=== PATIENT | female | born 1980 | race Caucasian/White ===

== ENCOUNTER 2021-04-22 14:59 | Emergency (ER) | payer SELFPAY ==
[2021-04-22 15:12] VITALS: BP 113/71; PULSE 85; TEMP 36.3; O2SAT 98
--- NOTE | 2021-04-22 15:57 | W.ED.GENAD ---
Discharge Plan Discharge Details Chief Complaint: Vascular Primary Care Provider: None,None ED Provider: Edna Antunez Home Meds and New Rx's Prescriptions: No Action sertraline [Zoloft] 50 mg Tablet 50 mg PO DAILY RF: 0 Discharge Data Discharge Date/Time-TO BE ENTERED AT DEPARTURE: 04/22/21 22:35 Medical Decision Making 41-year-old female presents with chief complaint of left knee tenderness and left lower extremity swelling which began approximately 1 week ago. Began with some tenderness and progress to swelling which extended into her left thigh. She reports increased activity approximately 1 week ago which may have contributed to the tenderness. However, she has about 13 hours of flight time from out of [place], flew in on Friday. Denies any chest pain no shortness of breath no fever chills. Does report a headache which she took sumatriptan for earlier today. Non-smoker, not on any control, no direct history of clotting disorders. She does report distant history on her mother side of DVTs with . At this time labs ordered including D-dimer CBC, CMP PT. Story is concerning for DVT however, patient is at low risk not on control no history of clotting disorders, non-smoker, nontachycardic upon arrival. She does state however that there is some distant history of blood clots on her mother side but none directly, also do not have access to ultrasound at this time. Will consider ordering on for tomorrow AM. X-ray left knee ordered. Offered Tylenol ibuprofen patient declined at this time. CBC is largely within normal limits no leukocytosis D-dimer is 204 which is also within normal limits less than 500, hemoglobin 13.1 hematocrit 39.7, PT 10.7 seconds INR 1.1 CMP also largely within normal limits glucose 111 Imaging protocol: XR Left knee. Views: 3 views. Total images: 4 COMPARISON: No relevant prior studies available. FINDINGS: Bones/joints: Normal. Soft tissues: Normal. IMPRESSION: No acute findings. Thank you for allowing us to participate in the care of your patient. Dictated and Authenticated by: Dillon Rocha MD 04/22/2021 5:38 PM Eastern Time ([place]) 1837: Informed by staff design engineer that patient is reporting not feeling well is complaining of right-sided headache and some squeezing in her right side of her neck which just began suddenly. On further examination patient has some left lower extremity weakness, decreased sensation to her left lower leg, no pronator drift, no foot drop or leg drop, no facial droop. Of note patient did take a sumatriptan prior to arrival for headache which she reported earlier. She does have a history of migraines. At this time I did order a CT brain and neck CTA. 2021: Call received from [facility] Dr. Robles radiologist he reports a filling defect in the right vertebral artery questionable dissection recommend catheter evaluation. Will discuss findings with patient and family and call [facility] transfer center for neurology consult and transfer request. FINDINGS: ANTERIOR CIRCULATION: Right internal carotid artery: Intracranial segment is patent with no significant stenosis or occlusion. No aneurysm. Right middle cerebral artery: No occlusion or significant stenosis. No aneurysm. Right anterior cerebral artery: No occlusion or significant stenosis. No aneurysm. MARIALUISA ARANGO Preliminary Radiology Report Page 2 of 3 Left internal carotid artery: Intracranial segment is patent with no significant stenosis. No aneurysm. Left middle cerebral artery: No occlusion or significant stenosis. No aneurysm. Left anterior cerebral artery: No occlusion or significant stenosis. No aneurysm. POSTERIOR CIRCULATION: Right vertebral artery: There is a thin linear filling defect in the intracranial portion of the right vertebral artery (series 11, image 69). Left vertebral artery: No occlusion or significant stenosis. No aneurysm. Basilar artery: No occlusion or significant stenosis. No aneurysm. Right posterior cerebral artery: No occlusion or significant stenosis. No aneurysm. Left posterior cerebral artery: No occlusion or significant stenosis. No aneurysm. HEAD: Brain: Unremarkable. No acute intracranial hemorrhage. No significant white matter disease. No edema. Cerebral ventricles: Normal. No ventriculomegaly. Bones/joints: Unremarkable. No acute fracture. Paranasal sinuses: Visualized sinuses are normal. No fluid levels. Mastoid air cells: Visualized mastoids are normal. No mastoid effusion. Soft tissues: Unremarkable. IMPRESSION: Linear filling defect in the intracranial right vertebral artery. Differential considerations include dissection, thrombus/embolus and artifact. Correlation with catheter angiography may be of value. ASSESSMENT: ASPECTS ([place] Stroke Program Early CT Score) is 10. Exam: CT Angiography Neck Without And With Contrast Exam date and time: 04/22/2021 6:38 PM Age: 41 years old Clinical indication: Headache and numbness and other: Left leg tingling; Patient HX: Headache in right side right christian into neck, numbness, L leg tingling TECHNIQUE: Imaging protocol: Computed tomographic angiography of the neck without and with contrast. 3D rendering (Not supervised by radiologist): MIP and/or 3D reconstructed images were created by the technologist. Radiation optimization: All CT scans at this facility use at least one of these dose optimization techniques: automated exposure control; mA and/or kV adjustment per patient size (includes targeted exams where dose is matched to clinical indication); or iterative reconstruction. COMPARISON: No relevant prior studies available. FINDINGS: Right common carotid artery: No stenosis. No dissection or occlusion. Right internal carotid artery: No stenosis of the extracranial segment. No dissection or occlusion. Right external carotid artery: No occlusion or stenosis of the origin. Left common carotid artery: No stenosis. No dissection or occlusion. Left internal carotid artery: No stenosis of the extracranial segment. No dissection or occlusion. Left external carotid artery: No occlusion or stenosis of the origin. Right vertebral artery: There is a thin linear filling defect in the intracranial portion of the right vertebral artery (series 11, image 69). Left vertebral artery: No stenosis. No dissection or occlusion. Soft tissues: Normal. No significant soft tissue swelling. Bones/joints: No acute fracture. IMPRESSION: Linear filling defect in the intracranial right vertebral artery. Differential considerations include dissection, thrombus/embolus and artifact. Correlation with catheter angiography may be of value. Thank you for allowing us to participate in the care of your patient. Dictated and Authenticated by: Dillon Rocha MD 2027: [facility] [place] transfer center called, Discussed CT results with patient and family who verbalized understanding of plan of care and are in agreement. Patient remains alert oriented. She does still complain of small right-sided headache with a little bit of right neck pain. No significant focal neuro deficits noted at this time. 2102: Spoke with neurologist Dr. Johnson regarding patient case and details, she recommends loading patient up with aspirin we will give 324 mg of chewable aspirin at this time. She does recommend transfer for further evaluation and imaging. Will discuss plan of care with patient and family. Will prepare to transfer to [facility] after bed confirmation. Patient remained hemodynamically stable throughout the rest of her stay no acute changes. Patient transferred to [facility]. HPI General Mode of arrival: ambulatory. Date/Time Provider Initiated Documentation: 04/22/21 15:41. Information obtained by: patient, family and RN notes reviewed. HPI Narrative: 41-year-old female presents with chief complaint of left knee tenderness and left lower extremity swelling which began approximately 1 week ago. Began with some tenderness and progress to swelling which extended into her left thigh. She reports increased activity approximately 1 week ago which may have contributed to the tenderness. However, she has about 13 hours of flight time from out of country, flew in on Friday. Denies any chest pain no shortness of breath no fever chills. Does report a headache which she took sumatriptan for earlier today. Non-smoker, not on any control, no direct history of clotting disorders. She does report distant history on her mother side of DVTs with . Related Data Home Medications Medication Instructions Recorded Confirmed sertraline [Zoloft] 50 mg PO DAILY 04/22/21 04/22/21 Allergies Allergy/AdvReac Type Severity Reaction Status Date / Time No Known Allergies Allergy Unverified 04/22/21 21:28 General Stated Complaint: Vascular ROBERT: 3 Review of Systems Narrative: Constitutional: Negative for weight loss, alert and oriented, well groomed, normal body habitus, appears comfortable. HEENT: Denies trauma, blurry vision, nasal discharge, sore throat, trouble swallowing. Chest: Denies chest pain, palpitations, irregular rhythm, hypertension. Respiratory: Denies Shortness of breath, cough, hemoptysis. GI: Denies abdominal pain, nausea, vomiting, diarrhea, constipation. Extremity: Complaining of left lower extremity swelling, tenderness, warmth and knee pain. : Denies dysuria, hematuria, flank pain, rectal bleeding. Neuro: Denies blurry vision, syncope, or facial numbness. Reports headache previously took sumatriptan for. Hematologic: Denies easy bruising, intolerance to heat or cold, hair loss. [facility] Social History Smoking/Tobacco Use Status: Never Smoking risk assessment performed?: Yes Exam Narrative Exam Narrative: Constitutional: Alert and oriented x3. Appears stated age. Normal body habitus. Head: Normocephalic, no trauma. Eyes: Pupils PERRLA, EOM's intact. Eyelids symmetrical without lesions, discharge, or swelling. Chest: RRR, Normal S1, S2, distal pulses intact. Resp: Lungs clear to auscultation bilaterally, no wheezes, rales, or rhonchi. Musculoskeletal: 5/5 strength to all four extremities. Left suprapatellar tenderness and pressure with passive range of motion. No significant deformity, erythema or swelling noted. No calf tenderness, negative Homans' sign, distal dorsal pedal pulses intact. Skin: No suspicious rashes or lesions. Capillary refill less than 2 sec. Neurologic: Cranial nerves II-XII intact. Alert and oriented x 3. DTR's intact. Hematologic/Lymphatic: No ecchymosis, no lymphadenopathy. Course Vital Signs Vital signs: Vital Signs Temperature 36.3 C L 04/22/21 15:12 Pulse 85 04/22/21 15:12 Blood Pressure 113/71 04/22/21 15:12 Pulse Oximetry 98 04/22/21 15:12 Temperature 36.3 C L 04/22/21 15:12 Temperature Source Temporal Artery Scan 04/22/21 15:12 Pulse 85 04/22/21 15:12 Blood Pressure 113/71 04/22/21 15:12 Blood Pressure Position Sitting 04/22/21 15:12 Pulse Oximetry 98 04/22/21 15:12 Oxygen Delivery Method Room Air 04/22/21 15:12 Oxygen Flow Rate 0 04/22/21 15:12 Pain Level 8 04/22/21 15:12
--- NOTE | 2021-04-22 16:00 | DI.RAD_ITS ---
Exam(s) XR KNEE LT 3V AP,LAT,TOMMY EXAM: XR KNEE LT 3V AP,LAT,TOMMY CLINICAL HISTORY: Left knee pain, swelling. TECHNIQUE: 2D digital imaging was performed. COMPARISON: No exams were available for comparison FINDINGS: BONES: No acute fracture is present. No bony destructive lesion is seen. JOINTS: The knee is normally aligned. No joint effusion is seen. SOFT TISSUE: Normal. IMPRESSION: Normal radiographs of the left knee. DATA REPOSITORY: RADIATION DOSE DELIVERED:
[2021-04-22 16:25] LABS: Abs Immature Grans 0.03 10^3/uL (0.0-0.06); Absolute Basophil Count 0.02 10^3/uL (0.0-0.2); Absolute Eosinophil Count 0.25 10^3/uL (0.0-0.7); Absolute Lymphocyte Count 2.31 10^3/uL (1.2-3.4); Absolute Monocyte Count 0.63 10^3/uL (0.1-0.8); Absolute Neutrophil Count 4.69 10^3/uL (1.2-6.7); Basophils % 0.3; Eosinophils % 3.2; HCT 39.7 % (36.0-46.0); HGB 13.1 g/dL (11.2-15.7); Immature Grans % 0.4; Lymphocytes % 29.1; MCH 30.1 pg (27.0-33.0); MCV 91.3 fL (80-95); MPV 9.5 fL (8.0-11.0); Monocytes % 7.9; Neutrophils % 59.1; Nucleated RBC 0 %; Platelet Count 299 10^3/uL (130-400); RBC 4.35 10^6/uL (3.93-5.22); RDW 12.6 % (11.7-14.6); RDW-SD 42.5 fL; WBC 7.93 10^3/uL (4.4-10.8)
[2021-04-22 16:37] LABS: INR 1.1 (0.9-1.1); Prothrombin Time 10.7 sec (9.3-11.0)
[2021-04-22 16:42] LABS: ALT 25 U/L (14-59); AST 12 U/L (15-37); Alkaline Phosphatase 35 U/L (46-116); Anion Gap 6.4 mmol/L (3-11); BUN 16 mg/dL (7-18); Bilirubin, Total 0.2 mg/dL (0.2-1.0); CO2 29.6 mmol/L (21.0-32.0); CREATININE 0.7 mg/dL (0.55-1.02); Calcium 8.9 mg/dL (8.5-10.1); Chloride 105 mmol/L (98-107); Glucose 111 mg/dL (74-106); Potassium 3.7 mmol/L (3.5-5.1); Sodium 141 mmol/L (136-145); Total Protein 7.3 g/dL (6.4-8.2)
[2021-04-22 17:06] LABS: D-Dimer 204 ng/mlFEU (<500)
--- NOTE | 2021-04-22 17:38 | DI.VRAD_ITS ---
PROCEDURE INFORMATION: Exam: XR Left Knee Exam date and time: 04/22/2021 4:15 PM Age: 41 years old Clinical indication: Patient HX: Left knee painx3 days, unknown injury TECHNIQUE: Imaging protocol: XR Left knee. Views: 3 views. Total images: 4 COMPARISON: No relevant prior studies available. FINDINGS: Bones/joints: Normal. Soft tissues: Normal. IMPRESSION: No acute findings. Dictated and Authenticated by: Dillon Rocha MD. Ordering:DANIEL Bishop MD
--- NOTE | 2021-04-22 18:30 | DI.CT_ITS ---
Exam(s) CT BRAIN NECK CTA EXAM: CT BRAIN NECK CTA CT BRAIN NECK CTA CLINICAL HISTORY: Right sided headache, Numbness, left leg, Tingling. TECHNIQUE: Imaging Protocol: Axial CT angiography was performed with multi-slice acquisition and mu lti-planar and/or 3D reconstructions. CONTRAST MATERIAL: Intravenous: Omnipaque 350 Contrast volume:100 ml COMPARISON: No exams were available for comparison FINDINGS: CT Head W/O and W contrast: Ventricles and Extra axial spaces: Normal in size and morphology for the patient's age. Hemorrhage: None. Cerebral parenchyma: Normal. Midline shift: None. Brainstem/Cerebellum: Normal. Calvarium: Normal. Visualized Paranasal sinuses/Mastoids: Clear. Soft Tissues: Unremarkable. Enhancement: Normal. CTA Brain W: Internal Carotid Arteries: Petrous: Normal. Cavernous: Normal. Cerebral: Normal. Middle Cerebral Arteries: Right: No aneurysm, occlusion or significant stenosis. Left: No aneurysm, occlusion or significant stenosis. Anterior Cerebral Arteries: Right: No aneurysm, occlusion or significant stenosis. Left: No aneurysm, occlusion or significant stenosis. Posterior cerebral Arteries: Right: No aneurysm, occlusion or significant stenosis. Left: No aneurysm, occlusion or significant stenosis. Vertebral Arteries: Right: No aneurysm, no occlusion. Small filling defect intracranial portion could represent a sma ll thrombus or small area of dissection versus developmental abnormality. Left: No aneurysm, occlusion or significant stenosis. Basilar Artery: No aneurysm, occlusion or significant stenosis. CTA Neck W: Common Carotid: Right: No aneurysm, occlusion or significant stenosis. Left: No aneurysm, occlusion or significant stenosis. External Carotid: Right: No aneurysm, occlusion or significant stenosis. Left: No aneurysm, occlusion or significant stenosis. Internal Carotid: Right: No aneurysm, occlusion or significant stenosis. Left: No aneurysm, occlusion or significant stenosis. Vertebral Artery: Right: No aneurysm, occlusion or significant stenosis. Left: No aneurysm, occlusion or significant stenosis. Lung Apices: Normal. Bones: Normal. Soft Tissues: Normal. IMPRESSION: 1. Small filling defect intracranial portion could represent a small thrombus or small area of diss ection versus developmental abnormality. Otherwise normal CTA examination of the [place]. 2. Unremarkable CT Head. 3. Normal CTA examination of the neck. INDICATION: Right sided headache, Numbness, left leg, Tingling RADIATION DOSE DELIVERED: 1,921.5mGy.cm Total DLP 1,921.5mGy.cm Total DLP DATA REPOSITORY: All CT scans at this facility are submitted to the National Radiology Data Registry (NRDR) Dose Index Registry (DIR) with the [employer] (ACR). RADIATION OPTIMIZATION: All CT scans at this facility use at least one of these dose optimization te chniques: automated exposure control; mA and/or kV adjustment per patient size (includes targeted exa ms where dose is matched to clinical indication); or iterative reconstruction.
[2021-04-22] MEDS: Acetaminophen 500 MG TAB PO (19:09)
[2021-04-22] MEDS: Omnipaque 350 MG/ML 100 ML BTL IJ (19:50)
[2021-04-22] MEDS: Normal Saline Flush 10 ML SYR IVP (19:51)
[2021-04-22] MEDS: Normal Saline - Diluent 50 ML VIAL IV (19:51)
--- NOTE | 2021-04-22 20:20 | DI.VRAD_ITS ---
Addendum created by Dillon Rocha MD on 04/22/2021 8:25:11 PM EDT: THIS REPORT CONTAINS FINDINGS THAT MAY BE CRITICAL TO PATIENT CARE. The findings were verbally communicated by me to MATILDA CHAUDHARI via telephone conference at 8:25 PM EDT on 04/22/2021. The findings were acknowledged and understood. Initial report created on 04/22/2021 8:19:45 PM EDT: PROCEDURE INFORMATION: Exam: CT Angiography Head Without And With Contrast, Arteriography Exam date and time: 04/22/2021 6:38 PM Age: 41 years old Clinical indication: Headache and numbness and other: Left leg tingling; Patient HX: Headache in right side right episcopalian into neck, numbness, L leg tingling TECHNIQUE: Imaging protocol: Computed tomographic angiography of the head without and with contrast. Exam focused on the arteries. 3D rendering (Not supervised by radiologist): MIP and/or 3D reconstructed images were created by the technologist. Total images: 2848 Radiation optimization: All CT scans at this facility use at least one of these dose optimization techniques: automated exposure control; mA and/or kV adjustment per patient size (includes targeted exams where dose is matched to clinical indication); or iterative reconstruction. Contrast material: OMNIPAQUE 350; Contrast volume: 100 ml; Contrast route: INTRAVENOUS (IV); Other technique: STROKE PROTOCOL was implemented. COMPARISON: No relevant prior studies available. FINDINGS: ANTERIOR CIRCULATION: Right internal carotid artery: Intracranial segment is patent with no significant stenosis or occlusion. No aneurysm. Right middle cerebral artery: No occlusion or significant stenosis. No aneurysm. Right anterior cerebral artery: No occlusion or significant stenosis. No aneurysm. Left internal carotid artery: Intracranial segment is patent with no significant stenosis. No aneurysm. Left middle cerebral artery: No occlusion or significant stenosis. No aneurysm. Left anterior cerebral artery: No occlusion or significant stenosis. No aneurysm. POSTERIOR CIRCULATION: Right vertebral artery: There is a thin linear filling defect in the intracranial portion of the right vertebral artery (series 11, image 69). Left vertebral artery: No occlusion or significant stenosis. No aneurysm. Basilar artery: No occlusion or significant stenosis. No aneurysm. Right posterior cerebral artery: No occlusion or significant stenosis. No aneurysm. Left posterior cerebral artery: No occlusion or significant stenosis. No aneurysm. HEAD: Brain: Unremarkable. No acute intracranial hemorrhage. No significant white matter disease. No edema. Cerebral ventricles: Normal. No ventriculomegaly. Bones/joints: Unremarkable. No acute fracture. Paranasal sinuses: Visualized sinuses are normal. No fluid levels. Mastoid air cells: Visualized mastoids are normal. No mastoid effusion. Soft tissues: Unremarkable. IMPRESSION: Linear filling defect in the intracranial right vertebral artery. Differential considerations include dissection, thrombus/embolus and artifact. Correlation with catheter angiography may be of value. ASSESSMENT: ASPECTS ([place] Stroke Program Early CT Score) is 10. PROCEDURE INFORMATION: Exam: CT Angiography Neck Without And With Contrast Exam date and time: 04/22/2021 6:38 PM Age: 41 years old Clinical indication: Headache and numbness and other: Left leg tingling; Patient HX: Headache in right side right episcopalian into neck, numbness, L leg tingling TECHNIQUE: Imaging protocol: Computed tomographic angiography of the neck without and with contrast. 3D rendering (Not supervised by radiologist): MIP and/or 3D reconstructed images were created by the technologist. Radiation optimization: All CT scans at this facility use at least one of these dose optimization techniques: automated exposure control; mA and/or kV adjustment per patient size (includes targeted exams where dose is matched to clinical indication); or iterative reconstruction. Contrast material: OMNIPAQUE 350; Contrast volume: 100 ml; Contrast route: INTRAVENOUS (IV); COMPARISON: No relevant prior studies available. FINDINGS: Right common carotid artery: No stenosis. No dissection or occlusion. Right internal carotid artery: No stenosis of the extracranial segment. No dissection or occlusion. Right external carotid artery: No occlusion or stenosis of the origin. Left common carotid artery: No stenosis. No dissection or occlusion. Left internal carotid artery: No stenosis of the extracranial segment. No dissection or occlusion. Left external carotid artery: No occlusion or stenosis of the origin. Right vertebral artery: There is a thin linear filling defect in the intracranial portion of the right vertebral artery (series 11, image 69). Left vertebral artery: No stenosis. No dissection or occlusion. Soft tissues: Normal. No significant soft tissue swelling. Bones/joints: No acute fracture. IMPRESSION: Linear filling defect in the intracranial right vertebral artery. Differential considerations include dissection, thrombus/embolus and artifact. Correlation with catheter angiography may be of value. Dictated and Authenticated by: Dillon Rocha MD. Ordering:DANIEL Bishop MD
[2021-04-22] MEDS: Aspirin 81 MG CHEW 324 MG CH (21:23)
[2021-04-22 21:30] VITALS: BP 108/72; PULSE 72; RESP 16; TEMP 36.4; O2SAT 100
== END 2021-04-22 22:35 | disposition short-term general hospital (02) ==
PROVIDERS: Emergency Provider Registered Nurse Emergency
DX: R51.9 Headache, unspecified (principal); R22.42 Localized swelling, mass and lump, left lower limb
CPT/HCPCS: 36415; 70496; 70498; 73562; 80053; 81025; 99285; 85025; 85379; 85610; 99284; J3490

== ENCOUNTER 2023-11-20 17:34 | Outpatient (REF) | payer OTHER, SELFPAY ==
[2023-11-20 21:05] LABS: HCT 41.7 % (36.0-46.0); MCH 29.7 pg (27.0-33.0); MCHC 33.6 % (32.0-36.0); MCV 89 fL (80-95); MPV 10.1 fL (8.0-11.0); Platelet Count 347 10^3/uL (130-400); RBC 4.71 10^6/uL (3.93-5.22); RDW 12.7 % (11.7-14.6); RDW-SD 41.7 fL; WBC 6.77 10^3/uL (4.4-10.8)
[2023-11-20 21:29] LABS: ALT 23 U/L (14-59); AST 16 U/L (15-37); Albumin 4.3 g/dL (3.4-5.0); Alkaline Phosphatase 38 U/L (46-116); Anion Gap 7.7 mmol/L (3-11); BUN 13 mg/dL (7-18); Bilirubin, Total 0.3 mg/dL (0.2-1.0); CO2 28.3 mmol/L (21.0-32.0); CREATININE 0.7 mg/dL (0.55-1.02); Calcium 8.9 mg/dL (8.5-10.1); Chloride 103 mmol/L (98-107); Estimated GFR 110.67 (mL/min/1.73m2); Ferritin 56 ng/mL (8-252); Glucose 94 mg/dL (74-106); Potassium 4.1 mmol/L (3.5-5.1); Sodium 139 mmol/L (136-145); TSH (W/Ref FT4) 0.81 uIU/mL (0.36-3.74); Total Protein 7.6 g/dL (6.4-8.2)
== END 2023-11-20 17:35 | disposition home or self-care (01) ==
LOC: NCHCN 17:34
PROVIDERS: Visit Provider Family Medicine
DX: E03.9 Hypothyroidism, unspecified (principal); R79.89 Other specified abnormal findings of blood chemistry
CPT/HCPCS: 80053; 85027; 82728; 84443

== ENCOUNTER 2024-01-20 21:06 | Outpatient (REF) | payer OTHER, SELFPAY | END 2024-01-20 21:07 | disposition home or self-care (01) | LOC: LBN 21:06 | PROVIDERS: PCP Family Medicine; Visit Provider Nurse Practitioner Family | DX: J02.9 Acute pharyngitis, unspecified (principal) | CPT/HCPCS: 87070 ==

== ENCOUNTER 2024-06-07 02:51 | Outpatient (CLI) | payer OTHER, SELFPAY ==
--- NOTE | 2024-06-07 | DI.MAMMO_ITS ---
Exam(s) MAMMO SCREENING EXAM: MAMMO SCREENING CLINICAL HISTORY: Screening, Z12.31 TECHNIQUE: Mammograms were interpreted according to the usual protocol including computer analysis w [employer] CAD system, tomosynthesis and C-view imaging. COMPARISON: No comparison mammograms available. FINDINGS: The breasts are composed of heterogeneously dense fibroglandular densities, Breast Density category C . No suspicious masses or suspicious microcalcifications are seen. No skin thickening or abnormal axillary lymph nodes are seen. IMPRESSION: BI-RADS Category 1, Negative mammogram. Yearly screening mammography is recommended. Breast Density Category C, heterogeneously Dense. The mammogram demonstrates the patient's breast tissue is dense. Dense breast tissue is very common a nd is not abnormal but dense breast tissue can make it harder to find cancer on a mammogram. Also, de nse breast tissue may increase breast cancer risk. This information about the result of the mammogram report was provided to the patient to raise their awareness. Use this report when you speak with the patient about their risks for breast cancer, which includes their family history. At that time, you may recommend additional screening tests (Ultrasound or MRI) as they might be useful based on their r isk. A negative radiographic report should not delay biopsy if a dominant or clinically suspicious mass is present. Up to ten percent of cancers are not identified on mammography. A negative report may reinforce clinical impression. Adenosis and dense breasts may obscure an underlying neoplasm. False positive reports average 6 to 10%.
== END 2024-06-07 03:11 ==
LOC: DI 02:51
PROVIDERS: PCP Family Medicine; Visit Provider Family Medicine
DX: Z12.31 Encounter for screening mammogram for malignant neoplasm of breast (principal)
CPT/HCPCS: 77063; 77067

== ENCOUNTER 2024-08-28 13:30 | Emergency (ER) | payer BC, SELFPAY ==
[2024-08-28 13:31] VITALS: BP 135/85; PULSE 71; RESP 16; TEMP 37.1; O2SAT 99
[2024-08-28 13:45] VITALS: BP 117/84; PULSE 88; RESP 16; TEMP 36.7; O2SAT 98
--- NOTE | 2024-08-28 13:45 | DI.CT_ITS ---
Exam(s) CT ABDOMEN PELVIS W EXAM: CT ABDOMEN PELVIS W CLINICAL HISTORY: RUQ abd pain, Diarrhea TECHNIQUE: Imaging Protocol: Axial computed tomography images with coronal and sagittal reformatted images were created and reviewed. CONTRAST MATERIAL: Intravenous: Omnipaque 350 Contrast volume:80 mL Oral: No COMPARISON: There are no priors for comparison. FINDINGS: ABDOMEN: Lung Bases: Normal where visualized. Liver: Normal density. There is a small cyst in the right lobe of the liver. No suspicious hepatic m asses are present. Portal, Superior Mesenteric, and Splenic Veins: Unremarkable. Gallbladder and Biliary Tract: No radiodense calculus or dilation. Pancreas: Normal density, no abnormal calcifications or inflammatory process. Spleen: Normal. Adrenals: No masses seen. Kidneys: Normal size, contour and axis. No radiodense stones or obstructive uropathy. No masses seen. Abdominal Aorta: Abdominal portion non-dilated. Bowel: No obstruction or bowel wall thickening. No evidence of appendicitis. There are fluid-filled loops of small bowel and large bowel present. This can be seen with a diarrheal illness/enteritis. Peritoneal Cavity: There is a small amount of fluid in the cul-de-sac which is likely physiologic. N o ascites is seen in the upper abdomen. No free air. Lymph Nodes: Within normal limits. Bones: Within normal limits for the patient's age. Soft Tissues: Unremarkable. PELVIS: Bladder: Symmetric distention, no gross wall thickening. Reproductive Organs: There is a 2.5 cm peripherally enhancing cyst in the right adnexa most consisten t with a corpus luteal cyst. Lymph Nodes: Within normal limits. Bones: Within normal limits for the patient's age. IMPRESSION: 1. Fluid-filled loops of small and large bowel are present. This can be seen with a diarrheal illnes s. No evidence of bowel obstruction. 2. Small amount of fluid seen in the cul-de-sac which is likely physiologic. 3. 2.5 cm peripherally enhancing cyst in the right adnexa most consistent with a corpus luteal cyst. RADIATION DOSE DELIVERED: 281.03mGy.cm Total DLP DATA REPOSITORY: All CT scans at this facility are submitted to the National Radiology Data Registry (NRDR) Dose Index Registry (DIR) with the [employer] (A[employer]). RADIATION OPTIMIZATION: All CT scans at this facility use at least one of these dose optimization te chniques: automated exposure control; mA and/or kV adjustment per patient size (includes targeted exa ms where dose is matched to clinical indication); or iterative reconstruction.
--- NOTE | 2024-08-28 13:50 | ED.GENADUL_ITS ---
Discharge Plan Disposition Patient Disposition: Home Condition: Stable Discharge Details Clinical Impression: Enteritis Primary Care Provider: Charu Guevara ED Provider: Edna Antunez Home Meds and New Rx's Prescriptions: Continued rizatriptan 10 mg tablet See Rx Instructions PO .COMPLEX Qty: 10 3RF Rx Instructions: take 1 tab at onset of headache; if no relief may repeat 1 tab after at least 2 hrs; max = 2 tabs/24 hr PO methylphenidate HCl [Concerta] 18 mg tablet extended release 24hr 36 mg PO DAILY PRN sertraline [Zoloft] 50 mg Tablet 50 mg PO DAILY No Action cyclobenzaprine 5 mg tablet See Rx Instructions PO QHS PRN (Reason: muscle spasm) Qty: 30 3RF Rx Instructions: 2.5-10 mg orally every day at bedtime PRN; Discharge Instructions Instructions: Diarrhea, Adult ED Additional Instructions: No evidence of gallbladder abnormality, obstruction, appendicitis or anything emergent on CT imaging. The results are consistent with a diarrheal illness such as enteritis. Clear liquids for the next 2 to 3 days, after that you may practice a brat diet with bananas rice apples and toast. Follow up with primary care provider in 3-5 days. Return to ED sooner if any worsening pain, fever, vomiting or concerns. Increase oral fluids. If diarrhea continues for more than 4 days you may take an [id number] Imodium or similar. Referrals: Charu Guevara [Primary Care Provider] - 5 days HPI General Mode of arrival: ambulatory . Date/Time Provider Initiated Documentation: 08/28/24 13:36 . Limitations to Documentation: no limitations . Information obtained by: patient, RN notes reviewed and old records reviewed . HPI Narrative: 44-year-old female presents to the ER with chief complaint of midepigastric abdominal pain which began on has worsened since. Worse after eating. She reports it does radiate to her back little bit. Also associated with diarrhea and low-grade fever. She was sent here from [facility] for further evaluation. She does have a past surgical history of ovarian cyst and D&C and lateral meniscal repair. Other history includes anxiety ADHD migraine and hypothyroidism. Related Data Home Medications ?Medication ?Instructions ?Recorded ?Confirmed sertraline 50 mg tablet (Zoloft) 50 mg PO DAILY 04/22/21 08/28/24 methylphenidate HCl 18 mg 36 mg PO DAILY PRN 11/25/23 08/28/24 tablet,extended release 24 hr (Concerta) cyclobenzaprine 5 mg tablet See Rx Instructions PO QHS PRN 04/08/24 08/28/24 muscle spasm #30 tabs rizatriptan 10 mg tablet See Rx Instructions PO .COMPLEX 06/01/24 08/28/24 migraine #10 tabs Previous Rx's ?Medication ?Instructions ?Recorded cyclobenzaprine 5 mg tablet See Rx Instructions PO QHS PRN 04/08/24 muscle spasm #30 tabs rizatriptan 10 mg tablet See Rx Instructions PO .COMPLEX 06/01/24 migraine #10 tabs Allergies Allergy/AdvReac Type Severity Reaction Status Date / Time No Known Allergies Allergy Unverified 08/28/24 13:35 General Stated Complaint: Abd Prob ROBERT: 3 Review of Systems All systems reviewed & are unremarkable except as noted in HPI and below Constitutional Constitutional: Reports as per HPI, Reports fever(s) and Reports poor appetite Gastrointestinal Gastrointestinal: Reports abdominal pain and Reports diarrhea Exam Narrative Exam Narrative: Constitutional: Alert and oriented x3. Appears stated age. Normal body habitus. Head: Normocephalic, no trauma. Eyes: Pupils PERRL, Red reflex noted, EOM's intact. Eyelids symmetrical without lesions, discharge, or swelling. ENT: Bilateral TM's WNL, External ear normal to inspection, no mastoid TTP, swelling, or erythema, Nasal turbinates WNL, no nasal discharge. Normal dentition, Posterior pharynx WNL, no exudate. Chest: RRR, Normal S1, S2, distal pulses intact. Resp: Lungs clear to auscultation bilaterally, no wheezes, rales, or rhonchi. Abdomen: Soft, non-distended, Normoactive bowel sounds all 4 quads. Musculoskeletal: Normal gait, Moves all 4 extremities without difficulty. Skin: No suspicious rashes or lesions. Capillary refill less than 2 sec. Neurologic: Cranial nerves II-XII intact. Alert and oriented x 3. Motor: No deficits noted. Sensory: Intact bilaterally all 4 extremities. Hematologic/Lymphatic: No ecchymosis, no lymphadenopathy. Course Vital Signs Vital signs: Vital Signs Temperature 37.1 C 08/28/24 13:31 Pulse 71 08/28/24 13:31 Respiratory Rate 16 11/09/24 13:31 Blood Pressure 135/85 08/28/24 13:31 Pulse Oximetry 99 08/28/24 13:31 Temperature 37.1 C 08/28/24 13:31 Temperature Source Oral 08/28/24 13:31 Pulse 71 08/28/24 13:31 Respiratory Rate 16 08/28/24 13:31 Respiratory Effort Normal, Non-Labored 08/28/24 13:37 Blood Pressure 135/85 08/28/24 13:31 Blood Pressure Position Sitting 08/28/24 13:31 Pulse Oximetry 99 08/28/24 13:31 Oxygen Delivery Method Room Air 08/28/24 13:31 Oxygen Flow Rate 0 08/28/24 13:31 Pain Level 4 08/28/24 13:31 Medical Decision Making 44-year-old female presents to the ER with chief complaint of midepigastric abdominal pain which began on has worsened since. Worse after eating. She reports it does radiate to her back little bit. Also associated with diarrhea and low-grade fever. She was sent here from [facility] for further evaluation. She does have a past surgical history of ovarian cyst and D&C and lateral meniscal repair. Other history includes anxiety ADHD migraine and hypothyroidism. Workup ordered including CBC CMP, urinalysis urine test lipase. CT abdomen pelvis. Differential diagnosis includes but not limited to cholelithiasis, cholecystitis, COVID, PUD, gastroenteritis, appendicitis, diverticulitis. Labs are largely unremarkable, urinalysis does show 20-50 RBCs but no evidence of infection. CT shows no evidence of gallbladder or biliary tract calculus or dilatation, findings are consistent with diarrheal illness such as enteritis. No evidence of appendicitis or any other abnormality. Will instruct patient on her liquid diet for the next 2 to 3 days, brat diet thereafter and strict return instructions. Discussed the above, patient verbalized understanding. This text was generated using [employer] system, please disregard any oddities of phrase or misspellings. Imaging Data Radiologic Study: Imaging: CT Scan Radiologist's impression: IMPRESSION: 1. Fluid-filled loops of small and large bowel are present. This can be seen with a diarrheal illness. No evidence of bowel obstruction. 2. Small amount of fluid seen in the cul-de-sac which is likely physiologic. 3. 2.5 cm peripherally enhancing cyst in the right adnexa most consistent with a corpus luteal cyst. Lab Data Lab results reviewed: Yes I reviewed the patient's lab results. Labs: Laboratory Tests Range/Units 08/28/24 08/28/24 13:46 13:55 WBC (4.4-10.8) 10^3/uL 4.99 RBC (3.93-5.22) 10^6/uL 4.86 Hgb (11.2-15.7) g/dL 14.6 Hct (36.0-46.0) % 43.6 MCV (80-95) fL 90 MCH (27.0-33.0) pg 30.0 MCHC (32.0-36.0) % 33.5 RDW (11.7-14.6) % 12.4 Plt Count (130-400) 10^3/uL 265 MPV (8.0-11.0) fL 9.1 Immature Gran % % 0.2 Neutrophils % % 62.0 Lymphocytes % % 24.0 Monocytes % % 9.8 Eosinophils % % 3.4 Basophils % % 0.6 Nucleated RBC % (0.0-0.3) % 0.0 Absolute Neutrophils (1.2-6.7) 10^3/uL 3.09 Absolute Lymphocytes (1.2-3.4) 10^3/uL 1.20 Absolute Monocytes (0.1-0.8) 10^3/uL 0.49 Absolute Eosinophils (0.0-0.7) 10^3/uL 0.17 Absolute Basophils (0.0-0.2) 10^3/uL 0.03 Sodium (136-145) mmol/L 142 Potassium (3.5-5.1) mmol/L 3.8 Chloride (98-107) mmol/L 104 Carbon Dioxide (21.0-32.0) mmol/L 28.2 Anion Gap (3-11) mmol/L 9.8 BUN (7-18) mg/dL 10 Creatinine (0.55-1.02) mg/dL 0.8 Est GFR (CKD-EPI 2020) (mL/min/1.73m2) 93.70 Glucose (74-106) mg/dL 94 Calcium (8.5-10.1) mg/dL 8.9 Magnesium (1.8-2.4) mg/dL 2.2 Total Bilirubin (0.2-1.0) mg/dL 0.46 AST (15-37) U/L 12 L ALT (14-59) U/L 21 Alkaline Phosphatase (46-116) U/L 52 Total Protein (6.4-8.2) g/dL 8.4 H Albumin (3.4-5.0) g/dL 4.5 Lipase (16-77) U/L 43 Urine Color (Yellow) Yellow Urine Clarity (Clear) Clear Urine pH (5-8) 7.0 Ur Specific [place] (1.005-1.025) 1.015 Urine Protein (Neg-Trace) mg/dL Negative Urine Ketones (Negative) mg/dL Negative Urine Blood (Negative) Moderate H Urine Nitrite (Negative) Negative Urine Bilirubin (Negative) Negative Urine Urobilinogen (Up to 0.2) mg/dL 0.2 Ur Leukocyte Esterase (Negative) Negative Urine RBC (0-2) HPF 20-50 H Urine WBC (0-5) HPF 0-2 Ur Epithelial Cells (Negative) HPF Many Urine Crystals (Negative) HPF Negative Urine Bacteria (Negative) HPF Negative Urine Casts (Negative) LPF Negative Urine Mucus (Negative) Negative Ur Culture Indicated? No Urine Glucose (Negative) mg/dL Negative Quality:SDOH Health Related Social Needs: No Data to Display PFSH All Active Problems (Updated 08/28/24 @ 15:03 by Edna Antunez NP) Enteritis (Acute) Migraine headache without aura (Acute) Cervicogenic migraine (Acute) Left leg swelling (Acute) Headache (Acute) Medical History Anxiety ADHD Migraine Herniated cervical disc Trigger finger of right hand Hypothyroidism Surgical History S/P dilation and curettage S/P lateral meniscal repair Family History Father Family history of premature coronary artery disease Family hx of hypertension Family history of combined hyperlipidemia Mother Family hx of hypertension Family history of combined hyperlipidemia Family history of breast cancer in first degree relative Sister Family hx of hypertension Maternal Aunt Family history of breast cancer in first degree relative Social History Smoking/Tobacco Use Status: Never Smoking risk assessment performed?: Yes Alcohol Intake: current Alcohol Intake frequency: a few times a month Drug use: Never Substance use type: does not use Do you feel safe at home: Yes Do you feel safe in your relationship?: Yes
[2024-08-28 14:04] LABS: Abs Immature Grans 0.01 10^3/uL (0.0-0.06); Absolute Basophil Count 0.03 10^3/uL (0.0-0.2); Absolute Eosinophil Count 0.17 10^3/uL (0.0-0.7); Absolute Monocyte Count 0.49 10^3/uL (0.1-0.8); Absolute Neutrophil Count 3.09 10^3/uL (1.2-6.7); Basophils % 0.6 %; Eosinophils % 3.4 %; HCT 43.6 % (36.0-46.0); HGB 14.6 g/dL (11.2-15.7); Immature Grans % 0.2 %; MCHC 33.5 % (32.0-36.0); MCV 90 fL (80-95); MPV 9.1 fL (8.0-11.0); Monocytes % 9.8 %; Platelet Count 265 10^3/uL (130-400); RBC 4.86 10^6/uL (3.93-5.22); RDW 12.4 % (11.7-14.6); RDW-SD 40.8 fL; WBC 4.99 10^3/uL (4.4-10.8)
[2024-08-28 14:10] LABS: Bilirubin Negative (Negative); Blood Moderate (Negative); Clarity Clear (Clear); Glucose Negative (Negative); Ketones Negative (Negative); Leukocyte Esterase Negative (Negative); Nitrite Negative (Negative); Specific Gravity 1.015 (1.005-1.025); Urobilinogen 0.2 mg/dL (Up to 0.2)
[2024-08-28 14:17] LABS: ALT 21 U/L (14-59); AST 12 U/L (15-37); Albumin 4.5 g/dL (3.4-5.0); Alkaline Phosphatase 52 U/L (46-116); Anion Gap 9.8 mmol/L (3-11); BUN 10 mg/dL (7-18); Bilirubin, Total 0.46 mg/dL (0.2-1.0); CO2 28.2 mmol/L (21.0-32.0); CREATININE 0.8 mg/dL (0.55-1.02); Calcium 8.9 mg/dL (8.5-10.1); Chloride 104 mmol/L (98-107); Glucose 94 mg/dL (74-106); Lipase 43 U/L (16-77); Magnesium 2.2 mg/dL (1.8-2.4); Potassium 3.8 mmol/L (3.5-5.1); Sodium 142 mmol/L (136-145); Total Protein 8.4 g/dL (6.4-8.2)
[2024-08-28] MEDS: Normal Saline - Diluent 50 ML VIAL IJ (14:20)
[2024-08-28] MEDS: Omnipaque 350 MG/ML 100 ML BTL 80 ML IJ (14:20)
[2024-08-28 14:22] LABS: Bacteria Negative HPF (Negative); C & S Indicated? No; Casts Negative LPF (Negative); Crystals Negative HPF (Negative); Epithelial Cells Many HPF (Negative); Mucus Negative (Negative); RBC 20-50 HPF (0-2); WBC 0-2 HPF (0-5)
[2024-08-28 14:53] VITALS: BP 114/70; PULSE 71; RESP 16; TEMP 36.7; O2SAT 100
== END 2024-08-28 15:11 | disposition home or self-care (01) ==
PROVIDERS: Emergency Provider Registered Nurse Emergency; PCP Family Medicine
DX: K52.9 Noninfective gastroenteritis and colitis, unspecified (principal)
CPT/HCPCS: 36415; 80053; 81025; 83690; 99285; 74177; 81003; 81015; 83735; 85025; 99284; J3490

== ENCOUNTER 2024-09-06 16:52 | Outpatient (REF) | payer BC, SELFPAY ==
[2024-09-06 15:52] LABS: ESR 2 mm/hr (0-20)
[2024-09-06 17:07] LABS: C-Reactive Protein < 0.50 mg/dL (<or=0.5)
[2024-09-06 22:27] LABS: Rheumatoid Factor <8.6 IU/mL (<12.0)
[2024-09-07 10:18] LABS: Cyclic Citrullinated Peptide <2.5 U/mL (<5.0)
[2024-09-07 12:38] LABS: ANA Interpretation Negative (Negative)
[2024-09-08 15:24] LABS: c-ANCA Negative (Negative); p-ANCA Negative (Negative)
== END 2024-09-06 16:53 | disposition home or self-care (01) ==
LOC: NCHCN 16:52
PROVIDERS: PCP Family Medicine; Visit Provider Family Medicine
DX: R22.30 Localized swelling, mass and lump, unspecified upper limb (principal); R31.29 Other microscopic hematuria
CPT/HCPCS: 85652; 86200; 81003; 82565; 84156; 86038; 86140; 86255; 86431

== ENCOUNTER 2024-09-13 22:00 | Outpatient (REF) | payer BC, SELFPAY ==
[2024-09-13 22:10] LABS: Bilirubin Negative (Negative); Blood Trace-lysed (Negative); Clarity Sl Cloudy (Clear); Glucose Negative (Negative); Ketones Negative (Negative); Leukocyte Esterase Negative (Negative); Nitrite Negative (Negative); Urobilinogen 0.2 mg/dL (Up to 0.2)
[2024-09-13 22:16] LABS: Bacteria Negative HPF (Negative); C & S Indicated? No; Crystals Many Amorphous HPF (Negative); Epithelial Cells Few HPF (Negative); Mucus Negative (Negative); WBC Negative HPF (0-5)
[2024-09-13 22:36] LABS: COMMENT (LAB VIEW ONLY) 67.39 mg/dL; PROTEIN 7.6 mg/dL; Prot/Crea Ur Ratio 0.11
== END 2024-09-13 22:01 | disposition home or self-care (01) ==
LOC: NCHCN 22:00
PROVIDERS: PCP Family Medicine; Visit Provider Family Medicine
DX: R31.29 Other microscopic hematuria (principal)
CPT/HCPCS: 81003; 81015; 82565; 84156

== ENCOUNTER 2024-10-29 00:24 | Outpatient (CLI) | payer BC, SELFPAY ==
--- NOTE | 2024-10-29 08:30 | DI.RAD_ITS ---
Exam(s) XR CERVICAL SPINE COMP 4-5V EXAM: XR CERVICAL SPINE COMP 4-5V CLINICAL HISTORY: pt with neck pain and cervicogenic headaches,m54.2. TECHNIQUE: 2D digital imaging was performed. COMPARISON: No exams were available for comparison FINDINGS: Five views. No evidence of fracture, listhesis, nor offset of the spinal laminar line There is moderate-advanced chronic type disc space narrowing at C5-6 level. There is anterior osseou s lipping and there are also by lateral Luschka joint osteophytes at this level, slightly more promin ent on the right side. All other disc spaces exhibit normal height and no Luschka joint osteophytes. The facet joints at C5-6 exhibit some degenerative change. Other facet joints appear unremarkable. There are no cervical ribs. No osseous lesions. Bone density normal. IMPRESSION: Chronic degenerative disc disease at C5-6 evident. Also bilateral Luschka joint osteophytes at this level, larger on the right side DATA REPOSITORY: RADIATION DOSE DELIVERED:
== END 2024-10-29 00:44 ==
PROVIDERS: PCP Family Medicine; Visit Provider Nurse Practitioner Adult Health
DX: M50.122 Cervical disc disorder at C5-C6 level with radiculopathy (principal)
CPT/HCPCS: 72050

== ENCOUNTER 2025-05-09 15:18 | Outpatient (REF) | payer BC, SELFPAY ==
--- NOTE | 2025-05-09 10:30 | PAPFT_PTH ---
PATIENT: Karolina Villagran LOC: [facility]#:[id number] AGE/SX: 45/F ROOM: RE05/09/[address]: Charu Guevara : 1980 BED: DIS: 05/09/2025 SPEC #: [id number] RECD: 05/09/25 18:09 STATUS: JOSIAH RETerry #: [id number] ODILIA: 05/09/25 10:[address]: Charu Guevara DEPT: [facility] Cytology RECD BY: Evon Sanchez Tissues: 1 - CX/ENDOCX FOR PAP SMEARS Procedures: PAP THIN PREP/UVM Screening HPV DNA PROBE Comments: [id number] (HPV 16 & 18/45)
[2025-05-09 18:28] LABS: Calculated LDL 121 mg/dL (<100); Cholesterol 203 mg/dL (<200); HDL Cholesterol 67 mg/dL (>or=50); Triglyceride 76 mg/dL (<150)
== END 2025-05-09 15:19 | disposition home or self-care (01) ==
LOC: NCHCN 15:18
PROVIDERS: PCP Family Medicine; Visit Provider Family Medicine
DX: Z12.4 Encounter for screening for malignant neoplasm of cervix (principal); Z13.220 Encounter for screening for lipoid disorders
CPT/HCPCS: 80061; 88142; 87624

== ENCOUNTER 2025-06-08 02:22 | Outpatient (CLI) | payer BC, SELFPAY ==
--- NOTE | 2025-06-08 | DI.MAMMO_ITS ---
Exam(s) MAMMO SCREENING EXAM: MAMMO SCREENING CLINICAL HISTORY: SCREENING MAMMO Z12.31 TECHNIQUE: Mammograms were interpreted according to the usual protocol including computer analysis with CAD system, tomosynthesis and C-view imaging. COMPARISON: 2023 FINDINGS: The breasts are composed of heterogeneously dense fibroglandular densities, Breast Density category C. No suspicious masses or suspicious microcalcifications are seen. No skin thickening or abnormal axillary lymph nodes are seen. There has been no significant change from prior exams. IMPRESSION: BI-RADS Category 1, Negative mammogram. Yearly screening mammography is recommended. Breast Density: Category C - The breasts are heterogeneously dense, which may obscure small masses. Breast density Category C or D implies that the patient has dense breast tissue. Dense breast tissue can make it harder to find cancer on a mammogram. Dense breast tissue is also associated with an increased risk of breast cancer. This information about the result of the mammogram report was provided to the patient to raise their awareness. Use this report when you speak with the patient about their risks for breast cancer, which includes their family history. At that time, you may recommend additional screening tests (Ultrasound or MRI) as these tests may add significant information. A negative radiographic report should not delay biopsy if a dominant or clinically suspicious mass is present. Up to ten percent of cancers are not identified on mammography. A negative report may reinforce clinical impression. Adenosis and dense breasts may obscure an underlying neoplasm. False positive reports average 6 to 10%.
== END 2025-06-08 02:42 ==
LOC: DI 02:22
PROVIDERS: PCP Family Medicine; Visit Provider Family Medicine
DX: Z12.31 Encounter for screening mammogram for malignant neoplasm of breast (principal); R92.333 Mammographic heterogeneous density, bilateral breasts
CPT/HCPCS: 77063; 77067

== ENCOUNTER 2025-06-09 10:26 | Day surgery (SDC) | payer BC, SELFPAY ==
--- NOTE | 2025-06-09 07:17 | W.PM.DSUDISC ---
Date of service: 06/09/25 Discharge Plan Disposition Patient Disposition: Home Condition: Stable Discharge Details Attending Provider: Salvador Olivas Primary Care Provider: Charu Guevara Home Meds and New Rx's Prescriptions: Continued rizatriptan 10 mg tablet See Rx Instructions PO .COMPLEX Qty: 10 3RF Rx Instructions: take 1 tab at onset of headache; if no relief may repeat 1 tab after at least 2 hrs; max = 2 tabs/24 hr PO cyclobenzaprine 5 mg tablet See Rx Instructions PO QHS PRN (Reason: muscle spasm) Qty: 30 3RF Rx Instructions: 2.5-10 mg orally every day at bedtime PRN; methylphenidate HCl [Concerta] 18 mg tablet extended release 24hr 36 mg PO DAILY sertraline 100 mg tablet 100 mg PO DAILY Discharge Instructions Additional Instructions: Surgery: Right middle finger trigger release on 06/09/2025 Activity: Protect hand for a few weeks. Gently increase finger motion and hand gripping to prevent stiffness. Recommend elevation to minimize swelling and discomfort. Prescriptions: None Resume home medicines, use [id number] Tylenol (acetaminophen) as needed for mild pain and ibuprofen (Motrin) or naproxen (Aleve) as needed for moderate to severe pain and swelling. Dressings: Leave dressing in place for 3 days. May then remove and leave open to air or cover incision with Band-Aid. May get wet after 5 days. Follow-up: 10-[address] Olivas Please call the office during business hours with any questions or concerns. Discharge Orders Discharge Orders: Discharge Order (Routine); Ordered 06/09/25 Ordered By: Martinez Valadez DS: Diagnosis Discharge Diagnosis (1) Trigger finger, right middle finger: Status: Acute
--- NOTE | 2025-06-09 07:18 | W.PM.OP ---
Operative Note Operative Note PRE-OP DIAGNOSIS: Right middle trigger finger PROCEDURE: Right middle finger trigger release, CPT# 51656 SURGEON: Salvador Olivas WIND INSTRUMENT REPAIRER: None None ANESTHESIA TYPE: Local By Surgeon Refer to Anesthesia Record ESTIMATED BLOOD LOSS: 1 TOURNIQUET TIME: 0 COMPLICATIONS: None Patient was transported to: same day Patient's condition: stable Indications: Please see complete medical record for details. Procedure Description: In the operating room, the patient was positioned supine on the stretcher. All bony prominences were padded. Preoperative antibiotics were omitted. The correct patient, procedure, and side of the procedure were all verified prior to beginning. Local anesthesia was induced about the site with 10cc of 1% lidocaine containing epinephrine buffered with 1 cc of sodium bicarbonate. The right hand was prepped and draped in the usual sterile fashion. Proper analgesia was confirmed. A small volar longitudinal approach was made overlying the middle finger MCP joint. Soft tissues were swept to the sides and retracted to expose the A1 lizzy. The release was started centrally with a knife and completed at the proximal and distal margins with tenotomy scissors. Care was taken to protect the flexor tendons. The tendons were inspected and are were healthy, possibly with some bulbous enlargement, but completely intact. Appropriate flexor tendon excursion was confirmed. The patient readily demonstrated full range of motion of the finger without triggering. The small incision was irrigated and then dried. Hemostasis was appropriate. The incision was closed using 3-0 nylon in a horizontal mattress fashion. Xeroform was applied followed by gauze and the hand was gently compressed with an Denzel bandage. The patient tolerated local anesthesia without complication and was transferred out of the operating room in a stable condition. Date of Procedure: 06/09/25
[2025-06-09 10:28] VITALS: BP 95/66; PULSE 72; RESP 16; TEMP 36.3; O2SAT 99
[2025-06-09 12:00] VITALS: BP 99/71; PULSE 69; RESP 16; TEMP 36.2; O2SAT 99
== END 2025-06-09 12:11 | disposition home or self-care (01) ==
PROVIDERS: PCP Family Medicine; Visit Provider Student in an Organized Health Care Education/Training Program
PROC: (CPT 26055; principal; 2025-06-09 11:00)
DX: M65.331 Trigger finger, right middle finger (principal)
CPT/HCPCS: 26055; J2004

== ENCOUNTER 2025-06-14 16:00 | Outpatient (REF) | payer BC, SELFPAY ==
--- NOTE | 2025-06-14 08:30 | SKI_PTH ---
PATIENT: Karolina Villagran LOC: [facility]#:[id number] AGE/SX: 45/F ROOM: RE06/14/[address]: Charu Guevara : 1980 BED: DIS: 06/14/2025 SPEC #: [id number] RECD: 06/14/25 17:43 STATUS: JOSIAH RED #: [id number] ODILIA: 06/14/25 08:[address]: Charu Guevara DEPT: Surgical Specimen RECD BY: Evon Sanchez Tissues: 1 - SKIN BIOPSY(SHAVE/PUNCH) Procedures: SKIN LEVEL 4 Comments: [id number]
== END 2025-06-14 16:01 | disposition home or self-care (01) ==
LOC: NCHCN 16:00
PROVIDERS: PCP Family Medicine; Visit Provider Family Medicine
DX: D22.5 Melanocytic nevi of trunk (principal)
CPT/HCPCS: 88305